=== PATIENT | female | born 1995 | race American Indian/Alaskan Native ===

== ENCOUNTER 2017-01-28 03:34 | Emergency (ER) | payer MEDICAID ==
[2017-01-28 03:50] VITALS: BP 111/61
--- NOTE | 2017-01-28 04:21 | Emergency Department Report ---
HPI - General Chief Complaint: Allergic Reaction Time Seen by Provider: 01/28/17 04:06 - HPI HPI: Patient is a 21-year-old female with no past medical condition presents to ED complaining of having hives over her body since 6 PM yesterday. Patient states hives started on her inner thighs and in progress to back thighs buttock and lower back. Patient describes itching all over. Patient states she does not recall, to contact with anything or ingested anything different. ED Past Medical Hx - Past Medical History Previous Medical History?: Yes Additional medical history: Hx jaw dislocation 2013 - Surgical History Past Surgical History?: No - Social History Smoking Status: Never Smoker Substance Use Type: None - Medications Home Medications: Home Medications Medication Instructions Recorded Confirmed Last Taken Type Ondansetron [Zofran Odt] 4 mg PO Q4-6H PRN #20 tab.rapdis 06/12/14 Unknown Rx Calamine/Zinc 8-8% [Calamine] 1 applic TP DAILY #1 bottle 01/28/17 Unknown Rx Hydroxyzine HCl [hydrOXYzine] 50 mg PO QHS #20 tablet 01/28/17 Unknown Rx Ibuprofen [Motrin 600 MG tab] 600 mg PO Q8H PRN #15 tablet 01/28/17 Unknown Rx predniSONE [Deltasone] 10 mg PO QDAY #5 tab 01/28/17 Unknown Rx ED Review of Systems ROS: Stated complaint: ALLERGIC REACTION Other details as noted in HPI Constitutional: denies: chills, fever Eyes: denies: eye pain, eye discharge, vision change ENT: denies: ear pain, throat pain Respiratory: denies: cough, shortness of breath, wheezing Cardiovascular: denies: chest pain, palpitations Endocrine: no symptoms reported Gastrointestinal: denies: abdominal pain, nausea, diarrhea Genitourinary: denies: urgency, dysuria, discharge Musculoskeletal: denies: back pain, joint swelling, arthralgia, myalgia Skin: pruritus. denies: rash, lesions Neurological: denies: headache, weakness, numbness, paresthesias, confusion Psychiatric: denies: anxiety, depression Hematological/Lymphatic: denies: easy bleeding, easy bruising Physical Exam - Physical Exam Vital Signs: Vital Signs 01/28/17 03:41 Temperature 98 F Pulse Rate 95 H Respiratory 18 Rate Blood Pressure 111/61 Blood Pressure 111/61 [Right] O2 Sat by Pulse 10 L Oximetry Physical Exam: GENERAL: Alert and oriented x3, actively scratching whelps, Normal Gait, atraumatic. HEAD: Head is normocephalic and a-traumatic. EYES: Extra ocular muscles are intact. Pupils are equal, round, and reactive to light and accommodation. MOUTH:Mouth is well hydrated and without lesions. Tonsils nonerythematous or swollen, Uvula midline, Tongue not elevated. Mucous membranes are moist. Posterior pharynx clear, no exudate or lesions. Patent airways. LUNGS: Symetrical with respiration, No wheezing, no rales or crackles, CTAB. HEART: S1, S2 present, regular rate and rhythm without murmur, no rubs, no gallops. Non tender to palpation ABDOMEN: No organomegaly was noted,Positive bowel sounds, soft, and non- distended. . Nontender to palpation on all Quadrants, NO CVA tenderness. SKIN: Warm and dry, generalized, raised, erythematous, whelps seen on bilateral thighs and buttocks and back area No lesions, No ulceration or induration present. ED Course Vital Signs 01/28/17 03:41 Temperature 98 F Pulse Rate 95 H Respiratory 18 Rate Blood Pressure 111/61 Blood Pressure 111/61 [Right] O2 Sat by Pulse 10 L Oximetry ED Medical Decision Making - Medical Decision Making 18-year-old female presents with the allergic reaction ED course: Patient received some Pepcid and Benadryl in the ED Patient will be sent home on trial of Benadryl, but is of prednisone and, calam lotion Discussed the patient to follow instructions as given Discussed symptoms will resolve on its own vital signs are stable patient is in no acute distress. She had an on uneventful ED stay Critical care attestation.: If time is entered above; I have spent that time in minutes in the direct care of this critically ill patient, excluding procedure time. ED Disposition Clinical Impression: Acute urticaria Allergic reaction Qualifiers: Encounter type: initial encounter Qualified Code(s): T78.40XA - Allergy, unspecified, initial encounter Disposition: TO HOME OR SELFCARE Is pt being admited?: No Does the pt Need Aspirin: No Condition: Stable Instructions: Urticaria (ED), Anaphylaxis (ED), Allergies (ED) Prescriptions: Hydroxyzine HCl [hydrOXYzine] 50 mg PO QHS #20 tablet Calamine/Zinc 8-8% [Calamine] 1 applic TP DAILY #1 bottle Ibuprofen [Motrin 600 MG tab] 600 mg PO Q8H PRN #15 tablet PRN Reason: Pain predniSONE [Deltasone] 10 mg PO QDAY #5 tab Referrals: [facility] [Outside] - 3-5 Days [facility] [Outside] - 3-5 Days [facility] [Outside] - 3-5 Days Forms: Accompanied Note, Work/School Release Form(ED) Time of Disposition: 05:10
[2017-01-28] MEDS ORDERED: PEPCID PO ONE (04:33)
[2017-01-28] MEDS ORDERED: BENADRYL PO ONE (04:33)
== END 2017-01-28 05:53 | disposition home or self-care (01) ==
LOC: ED 03:34
DX: L50.9 Urticaria, unspecified (principal); T78.40XA Allergy, unspecified, initial encounter
CPT/HCPCS: 96372; 99282; J2930

== ENCOUNTER 2017-07-31 02:59 | Emergency (ER) | payer MEDICAID ==
[2017-07-31 03:35] VITALS: BP 129/77
[2017-07-31] MEDS ORDERED: NORCO 5/325 PO ONE (07:08)
[2017-07-31] MEDS ORDERED: NORCO 5/325 ONE (07:10)
[2017-07-31] MEDS ORDERED: BSS 1 DROPS, TETRACAINE 0.5% 1 DROPS, FUL-GLO 1 MG OD ONE (07:22)
[2017-07-31] MEDS ORDERED: TETRACAINE 0.5% ONE (07:26)
[2017-07-31] MEDS ORDERED: TETRACAINE 0.5% OU ONE (07:34)
--- NOTE | 2017-07-31 07:36 | Emergency Department Report ---
ED Eye Problem HPI - General Chief complaint: Eye Problems Stated complaint: BILATERAL EYE PAIN Source: patient Mode of arrival: Ambulatory Limitations: No Limitations - History of Present Illness Initial comments: 21-year-old -[place] female comes in stating she felt seeing with her contacts last night and when she woke up she had redness and burning and itching and throbbing pain left eye reports light sensitivity. She does have someone here to drive her. chief complaint: eye pain, eye redness -: Last night Onset Description: awoke with symptoms Location: left eye If Injury: none Eye Symptoms: burning, redness, pain, discharge (watery), photophobia Severity scale (0 -10): 10 If Pain, Quality: burning, throbbing, stabbing Consistency: constant Context: contact lens use Treatments Prior to Arrival: none - Related Data Previous Rx's Medication Instructions Recorded Last Taken Type Ondansetron [Zofran Odt] 4 mg PO Q4-6H PRN #20 tab.rapdis 06/12/14 Unknown Rx Calamine/Zinc 8-8% [Calamine] 1 applic TP DAILY #1 bottle 01/28/17 Unknown Rx Hydroxyzine HCl [hydrOXYzine] 50 mg PO QHS #20 tablet 01/28/17 Unknown Rx Ibuprofen [Motrin 600 MG tab] 600 mg PO Q8H PRN #15 tablet 01/28/17 Unknown Rx predniSONE [Deltasone] 10 mg PO QDAY #5 tab 01/28/17 Unknown Rx Acetaminophen/Codeine [Tylenol 1 tab PO Q4HR PRN #12 tablet 07/31/17 Unknown Rx /Codeine # 3 tab] Levofloxacin [levofloxacin OPTH] 1 - 2 drop OP Q2HWA 5 Days #1 07/31/17 Unknown Rx bottle Allergies Allergy/AdvReac Type Severity Reaction Status Date / Time No Known Allergies Allergy Verified 06/11/14 23:54 ED Review of Systems ROS: Stated complaint: BILATERAL EYE PAIN Other details as noted in HPI Constitutional: denies: chills, fever Eyes: eye pain, eye discharge, vision change ENT: denies: ear pain, throat pain Respiratory: denies: cough, shortness of breath, wheezing Cardiovascular: denies: chest pain, palpitations Endocrine: no symptoms reported Gastrointestinal: denies: abdominal pain, nausea, diarrhea Genitourinary: denies: urgency, dysuria, discharge Musculoskeletal: denies: back pain, joint swelling, arthralgia Skin: denies: rash, lesions Neurological: denies: headache, weakness, paresthesias Psychiatric: denies: anxiety, depression Hematological/Lymphatic: denies: easy bleeding, easy bruising ED Past Medical Hx - Past Medical History Previous Medical History?: Yes Additional medical history: Hx jaw dislocation 2013 - Social History Smoking Status: Never Smoker - Medications Home Medications: Home Medications Medication Instructions Recorded Confirmed Last Taken Type Ondansetron [Zofran Odt] 4 mg PO Q4-6H PRN #20 tab.rapdis 06/12/14 Unknown Rx Calamine/Zinc 8-8% [Calamine] 1 applic TP DAILY #1 bottle 01/28/17 Unknown Rx Hydroxyzine HCl [hydrOXYzine] 50 mg PO QHS #20 tablet 01/28/17 Unknown Rx Ibuprofen [Motrin 600 MG tab] 600 mg PO Q8H PRN #15 tablet 01/28/17 Unknown Rx predniSONE [Deltasone] 10 mg PO QDAY #5 tab 01/28/17 Unknown Rx Acetaminophen/Codeine [Tylenol 1 tab PO Q4HR PRN #12 tablet 07/31/17 Unknown Rx /Codeine # 3 tab] Levofloxacin [levofloxacin OPTH] 1 - 2 drop OP Q2HWA 5 Days #1 07/31/17 Unknown Rx bottle ED Physical Exam - General Limitations: No Limitations General appearance: alert, in no apparent distress - Head Head exam: Present: atraumatic, normocephalic - Expanded Eye Exam Expanded Eyelids: Normal Inspection: Left Pupils: Regular, Round: Left Sclera/Conjunctival: Injection: Left Anterior chamber: Cell/Flare: Left (pleurisy uptake in the cornea lower pole of the eye between 7 and 5:00) Visual acuity (R) = 20/: 40 Visual acuity (L) = 20/: 50 With correction: No - Neurological Exam Neurological exam: Present: alert, oriented X3 - Psychiatric Psychiatric exam: Present: normal affect, normal mood ED Course Vital Signs 07/31/17 07/31/17 07/31/17 03:01 03:45 08:00 Temperature 98.3 F 98.3 F Pulse Rate 83 70 68 Respiratory 18 18 16 Rate Blood Pressure 129/77 129/77 O2 Sat by Pulse 100 100 99 Oximetry ED Medical Decision Making - Medical Decision Making Patient reevaluated by this provider fast track. Patient has a corneal abrasion discussed the patient and place her on antibiotics and have her follow up with an vamp strap ironer within the next 24-48 hours. Patient verbalized understanding. Critical care attestation.: If time is entered above; I have spent that time in minutes in the direct care of this critically ill patient, excluding procedure time. ED Disposition Clinical Impression: Corneal abrasion, left Qualifiers: Encounter type: initial encounter Qualified Code(s): S05.02XA - Injury of conjunctiva and corneal abrasion without foreign body, left eye, initial encounter Disposition: - TO HOME OR SELFCARE Is pt being admited?: No Does the pt Need Aspirin: No Condition: Stable Instructions: Corneal Abrasion (ED) Additional Instructions: Please see the drops as prescribed it is very important free to follow-up with an vamp strap ironer within 24-48 hours. I have listed several below. Prescriptions: Levofloxacin [levofloxacin OPTH] 1 - 2 drop OP Q2HWA 5 Days #1 bottle Acetaminophen/Codeine [Tylenol /Codeine # 3 tab] 1 tab PO Q4HR PRN #12 tablet PRN Reason: Pain Referrals: SHASTA JJ MD [Primary Care Provider] - 3-5 Days LUNA GERMAN MD [Staff Physician] - 3-5 Days GABINO CARDENAS MD [Staff Physician] - 3-5 Days JULIANO LEWIS MD [Staff Physician] - 3-5 Days KATIE DELUNA MD [Staff Physician] - 3-5 Days Forms: Work/School Release Form(ED)
[2017-07-31] MEDS ORDERED: FUL-GLO OP ONE ×2 (08:00→08:30)
== END 2017-07-31 07:59 | disposition home or self-care (01) ==
LOC: ED 02:59
DX: S05.02XA Injury of conjunctiva and corneal abrasion without foreign body, left eye, initial encounter (principal); X58.XXXA Exposure to other specified factors, initial encounter; Y93.89 Activity, other specified; Y92.89 Other specified places as the place of occurrence of the external cause; Y99.8 Other external cause status
CPT/HCPCS: 99283

== ENCOUNTER 2017-09-11 21:28 | Emergency (ER) | payer MEDICAID ==
[2017-09-11 22:55] VITALS: BP 130/85
== END 2017-09-11 23:43 | disposition left against medical advice (07) ==
LOC: ED 21:28
DX: K08.89 Other specified disorders of teeth and supporting structures (principal); Z53.21 Procedure and treatment not carried out due to patient leaving prior to being seen by health care provider

== ENCOUNTER 2017-11-16 10:57 | Emergency (ER) | payer MEDICAID ==
[2017-11-16 11:05] VITALS: BP 133/76
[2017-11-16 12:25] LABS: Bilirubin,Urine NEG (Negative); Blood,Urine NEG (Negative); Color,Urine Yellow (Yellow); Protein,Urine <15 mg/dL mg/dL (Negative); Urobilinogen,Urine < 2.0 mg/dL (<2.0)
[2017-11-16 12:28] LABS: HCG Qualitative,Urine Negative (Negative)
[2017-11-16] MEDS ORDERED: TORADOL IM ONE (12:43)
--- NOTE | 2017-11-16 12:44 | Emergency Department Report ---
ED Female HPI - General Chief complaint: Abdominal Pain Stated complaint: ABDOMINAL PAIN Time Seen by Provider: 11/16/17 12:26 Source: patient Mode of arrival: Ambulatory Limitations: No Limitations - History of Present Illness Initial comments: 22-year-old female past medical history ovarian cysts presents with complaint of right-sided lower abdominal pain consistent with previous episode of ovarian pain/adnexal pain. Patient does state she had whitish vaginal discharge. Patient was evaluated for similar episode at [facility] at the end of August 2017. States she had a battery of testing including blood work vaginal swabs and ultrasound. Patient presents to the result of an ultrasound which shows a 4.7 cm complicated right-sided ovarian cystic structure. Patient denies any vomiting fever or chills or dysuria but does state that she is having persistent right-sided adnexal pain. Pointing to her right lower abdominal region. States she is currently sexually active. LMP 10/28/17 MD Complaint: dysuria, pelvic pain Severity: moderate Severity scale (0 -10): 6 Consistency: intermittent Improves with: none Worsens with: none Are you Now?: No Last Menstrual Period: 10/28/17 EDC: 08/04/18 - Related Data Previous Rx's Medication Instructions Recorded Last Taken Type Ondansetron [Zofran Odt] 4 mg PO Q4-6H PRN #20 tab.rapdis 06/12/14 Unknown Rx Calamine/Zinc 8-8% [Calamine] 1 applic TP DAILY #1 bottle 01/28/17 Unknown Rx Hydroxyzine HCl [hydrOXYzine] 50 mg PO QHS #20 tablet 01/28/17 Unknown Rx Ibuprofen [Motrin 600 MG tab] 600 mg PO Q8H PRN #15 tablet 01/28/17 Unknown Rx predniSONE [Deltasone] 10 mg PO QDAY #5 tab 01/28/17 Unknown Rx Acetaminophen/Codeine [Tylenol 1 tab PO Q4HR PRN #12 tablet 07/31/17 Unknown Rx /Codeine # 3 tab] Levofloxacin [levofloxacin OPTH] 1 - 2 drop OP Q2HWA 5 Days #1 07/31/17 Unknown Rx bottle Acetaminophen/Codeine [Tylenol 1 tab PO Q6H PRN #10 tab 11/16/17 Unknown Rx /Codeine # 3 tab] Ibuprofen [Motrin] 800 mg PO Q8HR PRN #30 tablet 11/16/17 Unknown Rx metroNIDAZOLE [Flagyl TAB] 500 mg PO Q12HR #14 tab 11/16/17 Unknown Rx Allergies Allergy/AdvReac Type Severity Reaction Status Date / Time No Known Allergies Allergy Verified 11/16/17 11:00 ED Review of Systems ROS: Stated complaint: ABDOMINAL PAIN Other details as noted in HPI Constitutional: denies: chills, fever Eyes: denies: eye pain, eye discharge, vision change ENT: denies: ear pain, throat pain Respiratory: denies: cough, shortness of breath, wheezing Cardiovascular: denies: chest pain, palpitations Endocrine: no symptoms reported Gastrointestinal: denies: abdominal pain, nausea, diarrhea Genitourinary: as per HPI, discharge. denies: urgency, dysuria Musculoskeletal: denies: back pain, joint swelling, arthralgia Skin: denies: rash, lesions Neurological: denies: headache, weakness, paresthesias Psychiatric: denies: anxiety, depression Hematological/Lymphatic: denies: easy bleeding, easy bruising ED Past Medical Hx - Past Medical History Additional medical history: Hx jaw dislocation 2014/ OVARIAN CYST - Social History Smoking Status: Never Smoker Substance Use Type: None - Medications Home Medications: Home Medications Medication Instructions Recorded Confirmed Last Taken Type Ondansetron [Zofran Odt] 4 mg PO Q4-6H PRN #20 tab.rapdis 06/12/14 Unknown Rx Calamine/Zinc 8-8% [Calamine] 1 applic TP DAILY #1 bottle 01/28/17 Unknown Rx Hydroxyzine HCl [hydrOXYzine] 50 mg PO QHS #20 tablet 01/28/17 Unknown Rx Ibuprofen [Motrin 600 MG tab] 600 mg PO Q8H PRN #15 tablet 01/28/17 Unknown Rx predniSONE [Deltasone] 10 mg PO QDAY #5 tab 01/28/17 Unknown Rx Acetaminophen/Codeine [Tylenol 1 tab PO Q4HR PRN #12 tablet 07/31/17 Unknown Rx /Codeine # 3 tab] Levofloxacin [levofloxacin OPTH] 1 - 2 drop OP Q2HWA 5 Days #1 07/31/17 Unknown Rx bottle Acetaminophen/Codeine [Tylenol 1 tab PO Q6H PRN #10 tab 11/16/17 Unknown Rx /Codeine # 3 tab] Ibuprofen [Motrin] 800 mg PO Q8HR PRN #30 tablet 11/16/17 Unknown Rx metroNIDAZOLE [Flagyl TAB] 500 mg PO Q12HR #14 tab 11/16/17 Unknown Rx ED Physical Exam - General Limitations: No Limitations General appearance: alert, in no apparent distress - Head Head exam: Present: atraumatic, normocephalic - Eye Eye exam: Present: normal appearance, PERRL, EOMI - ENT ENT exam: Present: mucous membranes moist - Neck Neck exam: Present: normal inspection - Respiratory Respiratory exam: Present: normal lung sounds bilaterally. Absent: respiratory distress - Cardiovascular Cardiovascular Exam: Present: regular rate, normal rhythm. Absent: systolic murmur, diastolic murmur, rubs, gallop - GI/Abdominal GI/Abdominal exam: Present: soft, normal bowel sounds - External exam: Present: normal external exam Speculum exam: Present: vaginal discharge Bi-manual exam: Present: normal bi-manual exam (no significant adnexal pain on bimanual exam) - Extremities Exam Extremities exam: Present: normal inspection - Back Exam Back exam: Present: normal inspection - Neurological Exam Neurological exam: Present: alert, oriented X3 - Psychiatric Psychiatric exam: Present: normal affect, normal mood - Skin Skin exam: Present: warm, dry, intact, normal color. Absent: rash ED Course Vital Signs 11/16/17 11/16/17 11:01 13:57 Temperature 98.1 F Pulse Rate 86 Respiratory 18 18 Rate Blood Pressure 133/76 O2 Sat by Pulse 99 Oximetry ED Medical Decision Making - Medical Decision Making A/P: Ovarian cyst, vaginal discharge 1- I discussed ultrasound with Dr. Schroeder as PACS system is down today. Ultrasound shows 2.9 cm right-sided ovarian cyst. The blood flow to both ovaries on Doppler 2- Motrin when necessary, Tylenol No. 3 when necessary 3- course of metronidazole for BV 4- follow-up with [facility] Critical care attestation.: If time is entered above; I have spent that time in minutes in the direct care of this critically ill patient, excluding procedure time. ED Disposition Clinical Impression: Right ovarian cyst Disposition: DC- TO HOME OR SELFCARE Is pt being admited?: No Does the pt Need Aspirin: No Condition: Stable Instructions: Ovarian Cyst (ED) Prescriptions: Acetaminophen/Codeine [Tylenol /Codeine # 3 tab] 1 tab PO Q6H PRN #10 tab PRN Reason: Pain Ibuprofen [Motrin] 800 mg PO Q8HR PRN #30 tablet PRN Reason: Pain metroNIDAZOLE [Flagyl TAB] 500 mg PO Q12HR #14 tab Referrals: [facility] [Provider Group] - 3-5 Days [facility] [Provider Group] - 3-5 Days Forms: Work/School Release Form(ED) Time of Disposition: 14:45
[2017-11-16] MEDS ORDERED: TORADOL ONE ×2 (13:48)
--- NOTE | 2017-11-16 17:37 | Ultrasound Report ---
FINAL REPORT EXAM: US PELVIS DUPLEX DOPPLER COMP HISTORY: right adnexal pain and right lower quadrant pain. LMP 10/28/2017 TECHNIQUE: Ultrasound of the pelvis using transvaginal imaging PRIORS: None. FINDINGS: Uterus: Uterus is elongated in size, retroverted in position, and normal and homogeneous in echogenicity without focal fibroid formation. The uterus measures 8.2 x 4.3 x 5.5 cm in size. Endometrial stripe: Normal and uniform in thickness measuring 5.0 mm. Ovaries: Both ovaries appear enlarged in size and normal in echogenicity with normal blood flow bilaterally. The right ovary measures 5.0 x 2.3 x 3.1 cm and the left ovary measures 4.2 x 1.3 x 3.3 cm in size. On the right, there is a 1.9 cm cystic focus containing several internal thin septations. Findings are likely benign, however, short-term follow-up ultrasound is recommended in 6 weeks. Other: There is no evidence for solid adnexal mass but there is a small amount free fluid in the cul-de-sac seen. IMPRESSION: 1. complex cystic focus in the right ovary with internal septations. Findings are most likely benign, however, short-term follow-up ultrasound is recommended in 6 weeks. 2. small amount of free fluid is seen. 3. Uterus is retroverted and mildly elongated.
== END 2017-11-16 15:01 | disposition home or self-care (01) ==
LOC: ED 10:57
DX: N83.201 Unspecified ovarian cyst, right side (principal)
CPT/HCPCS: 76830; 81001; 81025; 87210; 87591; 93975; 96372; 99284; J1885

== ENCOUNTER 2018-02-04 11:13 | Emergency (ER) | payer MEDICAID, OTHER ==
--- NOTE | 2018-02-04 11:56 | Emergency Department Report ---
ED Female HPI - General Chief complaint: Vaginal Bleeding Stated complaint: /BLOOD SPOTTING Time Seen by Provider: 02/04/18 11:40 Source: patient Mode of arrival: Ambulatory Limitations: No Limitations - History of Present Illness Initial comments: Patient is 22 years old female 3 para 1 with one . Patient being that she is 4 weeks coming to the ER complaining of vaginal bleeding and cramping since yesterday. Patient denied any dizziness or lightheadedness. No chest pain or shortness of breath. MD Complaint: vaginal bleeding, pelvic pain -: Last night Radiation: suprapubic Severity: moderate Quality: cramping Consistency: intermittent - Related Data Previous Rx's Medication Instructions Recorded Last Taken Type Ondansetron [Zofran Odt] 4 mg PO Q4-6H PRN #20 tab.rapdis 06/12/14 Unknown Rx Calamine/Zinc 8-8% [Calamine] 1 applic TP DAILY #1 bottle 01/28/17 Unknown Rx Hydroxyzine HCl [hydrOXYzine] 50 mg PO QHS #20 tablet 01/28/17 Unknown Rx Ibuprofen [Motrin 600 MG tab] 600 mg PO Q8H PRN #15 tablet 01/28/17 Unknown Rx predniSONE [Deltasone] 10 mg PO QDAY #5 tab 01/28/17 Unknown Rx Acetaminophen/Codeine [Tylenol 1 tab PO Q4HR PRN #12 tablet 07/31/17 Unknown Rx /Codeine # 3 tab] Levofloxacin [levofloxacin OPTH] 1 - 2 drop OP Q2HWA 5 Days #1 07/31/17 Unknown Rx bottle Acetaminophen/Codeine [Tylenol 1 tab PO Q6H PRN #10 tab 11/16/17 Unknown Rx /Codeine # 3 tab] Ibuprofen [Motrin] 800 mg PO Q8HR PRN #30 tablet 11/16/17 Unknown Rx metroNIDAZOLE [Flagyl TAB] 500 mg PO Q12HR #14 tab 11/16/17 Unknown Rx Allergies Allergy/AdvReac Type Severity Reaction Status Date / Time No Known Allergies Allergy Verified 11/16/17 16:45 ED Review of Systems ROS: Stated complaint: /BLOOD SPOTTING Other details as noted in HPI Comment: All other systems reviewed and negative Constitutional: denies: chills, fever Cardiovascular: denies: chest pain, palpitations, dyspnea on exertion Gastrointestinal: abdominal pain Neurological: denies: headache, weakness, numbness, paresthesias ED Past Medical Hx - Past Medical History Additional medical history: Hx jaw dislocation 2014/ OVARIAN CYST - Social History Smoking Status: Never Smoker Substance Use Type: None - Medications Home Medications: Home Medications Medication Instructions Recorded Confirmed Last Taken Type Ondansetron [Zofran Odt] 4 mg PO Q4-6H PRN #20 tab.rapdis 06/12/14 Unknown Rx Calamine/Zinc 8-8% [Calamine] 1 applic TP DAILY #1 bottle 01/28/17 Unknown Rx Hydroxyzine HCl [hydrOXYzine] 50 mg PO QHS #20 tablet 01/28/17 Unknown Rx Ibuprofen [Motrin 600 MG tab] 600 mg PO Q8H PRN #15 tablet 01/28/17 Unknown Rx predniSONE [Deltasone] 10 mg PO QDAY #5 tab 01/28/17 Unknown Rx Acetaminophen/Codeine [Tylenol 1 tab PO Q4HR PRN #12 tablet 07/31/17 Unknown Rx /Codeine # 3 tab] Levofloxacin [levofloxacin OPTH] 1 - 2 drop OP Q2HWA 5 Days #1 07/31/17 Unknown Rx bottle Acetaminophen/Codeine [Tylenol 1 tab PO Q6H PRN #10 tab 11/16/17 Unknown Rx /Codeine # 3 tab] Ibuprofen [Motrin] 800 mg PO Q8HR PRN #30 tablet 11/16/17 Unknown Rx metroNIDAZOLE [Flagyl TAB] 500 mg PO Q12HR #14 tab 11/16/17 Unknown Rx ED Physical Exam - General Limitations: No Limitations General appearance: alert, in no apparent distress - Head Head exam: Present: atraumatic, normocephalic, normal inspection - Eye Eye exam: Present: normal appearance, PERRL - ENT ENT exam: Present: normal exam, normal orophraynx, mucous membranes moist - Neck Neck exam: Present: normal inspection, full ROM. Absent: tenderness, meningismus, lymphadenopathy, thyromegaly - Respiratory Respiratory exam: Present: normal lung sounds bilaterally - Cardiovascular Cardiovascular Exam: Present: regular rate, normal rhythm, normal heart sounds - GI/Abdominal GI/Abdominal exam: Present: soft, normal bowel sounds. Absent: distended, tenderness, guarding, rebound, rigid, organomegaly, mass, bruit, pulsatile mass , hernia - Extremities Exam Extremities exam: Present: normal inspection, full ROM, normal capillary refill - Back Exam Back exam: Present: normal inspection, full ROM. Absent: CVA tenderness (L) - Neurological Exam Neurological exam: Present: alert, oriented X3, CN II-XII intact, normal gait - Skin Skin exam: Present: warm, intact, normal color ED Course Vital Signs 02/04/18 11:15 Temperature 98.5 F Pulse Rate 89 Respiratory 16 Rate Blood Pressure 130/68 O2 Sat by Pulse 100 Oximetry ED Medical Decision Making - Lab Data Result diagrams: 02/04/18 12:10 02/04/18 12:10 - Medical Decision Making Patient is 22 years old female presented to the ER with vaginal spotting for the last 2-3 days. Patient claimed that she is 4 weeks . However. HCG today is 800. I advised patient to follow up with her OB in 2 days for repeat O4 labs or she can return to the ER for that. Critical care attestation.: If time is entered above; I have spent that time in minutes in the direct care of this critically ill patient, excluding procedure time. ED Disposition Clinical Impression: Vaginal bleeding affecting early Disposition: DC-01 TO HOME OR SELFCARE Is pt being admited?: No Condition: Stable Instructions: Abdominal Pain in (ED) Referrals: PRIMARY CARE, [Primary Care Provider] - 3-5 Days
[2018-02-04 12:44] LABS: Basophils % (Auto) 0.9 % (0.0-1.8); Hematocrit 36.6 % (30.3-42.9); Hemoglobin 12.2 gm/dl (10.1-14.3); Lymphocytes # (Auto) 1.2 K/mm3 (1.2-5.4); Lymphocytes % (Auto) 38.3 % (13.4-35.0); Mean Corpuscular HGB Conc 33 % (30-34); Mean Corpuscular Hemoglobin 28 pg (28-32); Mean Corpuscular Volume 86 fl (79-97); Monocytes # (Auto) 0.3 K/mm3 (0.0-0.8); Monocytes % (Auto) 8.4 % (0.0-7.3); Platelet Count 296 K/mm3 (140-440); Red Blood Count 4.28 M/mm3 (3.65-5.03); Red Cell Distribution Width 13.8 % (13.2-15.2)
[2018-02-04 12:52] LABS: BUN/Creatinine Ratio 14; Blood Urea Nitrogen 7 mg/dL (7-17); Calcium 8.8 mg/dL (8.4-10.2); Hemolysis Index 13
[2018-02-04 13:05] LABS: INR 1.01 (0.87-1.13); Partial Thromboplastin Time 26.7 Sec. (24.2-36.6)
[2018-02-04 14:37] VITALS: BP 108/57
[2018-02-04 15:11] LABS: Bacteria,Urine 1+ /HPF (Negative); Bilirubin,Urine NEG (Negative); Blood,Urine LG (Negative); Color,Urine Yellow (Yellow); Mucus,Urine FEW /HPF; Protein,Urine <15 mg/dL mg/dL (Negative); Urobilinogen,Urine < 2.0 mg/dL (<2.0)
[2018-02-04 15:13] LABS: RBC,Urine > 182.0 /HPF (0.0-6.0)
== END 2018-02-04 14:36 | disposition home or self-care (01) ==
LOC: ED 11:13
DX: O20.9 Hemorrhage in early pregnancy, unspecified (principal); O26.891 Other specified pregnancy related conditions, first trimester; R10.9 Unspecified abdominal pain; Z3A.01 Less than 8 weeks gestation of pregnancy
CPT/HCPCS: 36415; 80048; 81001; 84702; 85025; 85610; 85730; 86900; 86901; 99283

== ENCOUNTER 2018-02-06 08:09 | Emergency (ER) | payer SELFPAY ==
[2018-02-06 09:08] LABS: Basophils # (Auto) 0.1 K/mm3 (0.0-0.1); Basophils % (Auto) 1.9 % (0.0-1.8); Hematocrit 32.9 % (30.3-42.9); Hemoglobin 11.6 gm/dl (10.1-14.3); Lymphocytes # (Auto) 1.5 K/mm3 (1.2-5.4); Mean Corpuscular HGB Conc 35 % (30-34); Mean Corpuscular Hemoglobin 30 pg (28-32); Mean Corpuscular Volume 84 fl (79-97); Monocytes # (Auto) 0.3 K/mm3 (0.0-0.8); Monocytes % (Auto) 6.8 % (0.0-7.3); Platelet Count 290 K/mm3 (140-440); Red Cell Distribution Width 13.5 % (13.2-15.2)
--- NOTE | 2018-02-06 10:50 | Emergency Department Report ---
ED HPI - General Chief complaint: Vaginal Bleeding Stated complaint: BLEEDING AND PREG Time Seen by Provider: 02/06/18 10:37 Source: patient Mode of arrival: Ambulatory Limitations: No Limitations - History of Present Illness Initial comments: This is a 22-year-old -[place] female who presents with vaginal bleeding and cramping for 2 days. Patient states she was seen here on Monday and instructed to return in 2 days to rule out miscarriage. Patient states she is still passing large amounts of clots and having to change her menstrual pad every 2-4 hours. Patient states she is also having some lower abdominal pain. Patient reports last menstrual period 12/26/2017, A1. Patient denies low back pain, nausea or vomiting, fever, and chest pain. MD Complaint: abdominal pain, vaginal bleeding Onset/Timin -: days(s) Location: abdomen Radiation: none Severity: moderate Severity scale (0 -10): 5 Quality: cramping Consistency: intermittent Improves with: none Worsens with: none Associated symptoms: vaginal bleeding, abdominal pain. denies: nausea/vomiting , vaginal discharge, dysuria, headache, vision changes, malaise, dysparuenia, rash, seizure, shortness of breath, syncope, weakness Vaginal bleeding: clots :: Yes OB History - Current : no complications OB History - Previous Pregnancies: no complications Last menstrual period: 12/26/17 Pre-stacie care: none - Related Data : 3 Para: 1 Ab: 1 Previous Rx's Medication Instructions Recorded Last Taken Type Ondansetron [Zofran Odt] 4 mg PO Q4-6H PRN #20 tab.rapdis 06/12/14 Unknown Rx Calamine/Zinc 8-8% [Calamine] 1 applic TP DAILY #1 bottle 01/28/17 Unknown Rx Hydroxyzine HCl [hydrOXYzine] 50 mg PO QHS #20 tablet 01/28/17 Unknown Rx Ibuprofen [Motrin 600 MG tab] 600 mg PO Q8H PRN #15 tablet 01/28/17 Unknown Rx predniSONE [Deltasone] 10 mg PO QDAY #5 tab 01/28/17 Unknown Rx Acetaminophen/Codeine [Tylenol 1 tab PO Q4HR PRN #12 tablet 07/31/17 Unknown Rx /Codeine # 3 tab] Levofloxacin [levofloxacin OPTH] 1 - 2 drop OP Q2HWA 5 Days #1 02/05/18 Unknown Rx bottle Acetaminophen/Codeine [Tylenol 1 tab PO Q6H PRN #10 tab 11/16/17 Unknown Rx /Codeine # 3 tab] Ibuprofen [Motrin] 800 mg PO Q8HR PRN #30 tablet 11/16/17 Unknown Rx metroNIDAZOLE [Flagyl TAB] 500 mg PO Q12HR #14 tab 11/16/17 Unknown Rx Allergies Allergy/AdvReac Type Severity Reaction Status Date / Time No Known Allergies Allergy Verified 02/06/18 08:19 ED Review of Systems ROS: Stated complaint: BLEEDING AND PREG Other details as noted in HPI Constitutional: denies: chills, fever Respiratory: denies: cough, shortness of breath, wheezing Cardiovascular: denies: chest pain, palpitations Gastrointestinal: abdominal pain (lower abdominal cramping). denies: nausea, vomiting, diarrhea Genitourinary: other (vaginal bleeding). denies: urgency, dysuria, discharge Musculoskeletal: denies: back pain, joint swelling, arthralgia Neurological: denies: headache, weakness, paresthesias Psychiatric: denies: anxiety, depression ED Past Medical Hx - Past Medical History Additional medical history: Hx jaw dislocation 2013/ OVAR[facility] CYST - Surgical History Past Surgical History?: No - Social History Smoking Status: Never Smoker Substance Use Type: None - Medications Home Medications: Home Medications Medication Instructions Recorded Confirmed Last Taken Type Ondansetron [Zofran Odt] 4 mg PO Q4-6H PRN #20 tab.rapdis 06/12/14 Unknown Rx Calamine/Zinc 8-8% [Calamine] 1 applic TP DAILY #1 bottle 01/28/17 Unknown Rx Hydroxyzine HCl [hydrOXYzine] 50 mg PO QHS #20 tablet 01/28/17 Unknown Rx Ibuprofen [Motrin 600 MG tab] 600 mg PO Q8H PRN #15 tablet 01/28/17 Unknown Rx predniSONE [Deltasone] 10 mg PO QDAY #5 tab 01/28/17 Unknown Rx Acetaminophen/Codeine [Tylenol 1 tab PO Q4HR PRN #12 tablet 07/31/17 Unknown Rx /Codeine # 3 tab] Levofloxacin [levofloxacin OPTH] 1 - 2 drop OP Q2HWA 5 Days #1 07/31/17 Unknown Rx bottle Acetaminophen/Codeine [Tylenol 1 tab PO Q6H PRN #10 tab 05/24/18 Unknown Rx /Codeine # 3 tab] Ibuprofen [Motrin] 800 mg PO Q8HR PRN #30 tablet 11/16/17 Unknown Rx metroNIDAZOLE [Flagyl TAB] 500 mg PO Q12HR #14 tab 11/16/17 Unknown Rx ED Physical Exam - General Limitations: No Limitations General appearance: alert, in no apparent distress - Respiratory Respiratory exam: Present: normal lung sounds bilaterally. Absent: respiratory distress - Cardiovascular Cardiovascular Exam: Present: regular rate, normal rhythm. Absent: systolic murmur, diastolic murmur, rubs, gallop - GI/Abdominal GI/Abdominal exam: Present: soft, tenderness (suprapubic tenderness), normal bowel sounds. Absent: distended, guarding, rebound, rigid, organomegaly, mass - Back Exam Back exam: Present: normal inspection, full ROM. Absent: CVA tenderness (R), CVA tenderness (L) - Neurological Exam Neurological exam: Present: alert, oriented X3, normal gait - Psychiatric Psychiatric exam: Present: normal affect, normal mood - Skin Skin exam: Present: warm, dry, intact, normal color. Absent: rash ED Course Vital Signs 02/06/18 08:19 Temperature 98.5 F Pulse Rate 80 Respiratory 16 Rate Blood Pressure 119/60 O2 Sat by Pulse 98 Oximetry ED Medical Decision Making - Lab Data Result diagrams: 02/06/18 08:39 - Radiology Data Radiology results: report reviewed ULTRASOUND OB LESS THAN 14 WEEKS FETUS ULTRASOUND OB TRANSVAGINAL HISTORY: Vaginal bleeding during . COMPARISON: 11/16/17. TECHNIQUE: Transabdominal and transvaginal ultrasound with color doppler interrogation. FINDINGS: Uterus: The uterus is retroflexed and measures 8.5 x 4.0 x 5.9 cm. No uterine mass is identified. The cervix is obscured. Endometrium: The endometrium measures 7 mm in thickness. No intrauterine is demonstrated. Right ovary: 3.5 x 1.6 x 2.7 cm. No focal abnormality. Left ovary: 2.2 x 1.3 x 3.0 cm. No focal abnormality. No pelvic fluid or mass is identified. Normal color doppler interrogation. IMPRESSION: Unremarkable transabdominal and transvaginal pelvic ultrasounds. No intrauterine is demonstrated. - Medical Decision Making This is a 22 y.o. female presents with vaginal bleeding during for 2 days. Patient was examined by me. Vitals are normal and patient is in no acute distress. Obtained a urinalysis, CBC, hCG quant, and OB ultrasound. Quant 608.7 which is lower than 2 days ago. All other labs unremarkable. Unremarkable transabdominal and transvaginal pelvic ultrasounds. No intrauterine is demonstrated. Patient instructed to follow-up with with [facility] in a few days for further evaluation. Patient discharged home in stable condition. Critical care attestation.: If time is entered above; I have spent that time in minutes in the direct care of this critically ill patient, excluding procedure time. ED Disposition Clinical Impression: Threatened miscarriage, Vaginal bleeding during Disposition: TO HOME OR SELFCARE Is pt being admited?: No Does the pt Need Aspirin: No Condition: Stable Instructions: Threatened Miscarriage (ED) Additional Instructions: Follow up with [facility] in 24-48 hours. Return to ER if increased vaginal bleeding, abdominal pain, and low back pain. Referrals: [facility] [Provider Group] - 3-5 Days [facility] [Provider Group] - 3-5 Days [facility] [Outside] - 3-5 Days Time of Disposition: 12:30 Print Language: [place] LEONE[place]
--- NOTE | 2018-02-06 12:01 | Ultrasound Report ---
ULTRASOUND OB LESS THAN 14 WEEKS FETUS ULTRASOUND OB TRANSVAGINAL HISTORY: Vaginal bleeding during . COMPARISON: 11/16/17. TECHNIQUE: Transabdominal and transvaginal ultrasound with color doppler interrogation. FINDINGS: Uterus: The uterus is retroflexed and measures 8.5 x 4.0 x 5.9 cm. No uterine mass is identified. The cervix is obscured. Endometrium: The endometrium measures 7 mm in thickness. No intrauterine is demonstrated. Right ovary: 3.5 x 1.6 x 2.7 cm. No focal abnormality. Left ovary: 2.2 x 1.3 x 3.0 cm. No focal abnormality. No pelvic fluid or mass is identified. Normal color doppler interrogation. IMPRESSION: Unremarkable transabdominal and transvaginal pelvic ultrasounds. No intrauterine is demonstrated.
[2018-02-06 13:02] VITALS: BP 121/78
== END 2018-02-06 12:45 | disposition home or self-care (01) ==
LOC: ED 08:09
DX: O20.0 Threatened abortion (principal); Z3A.00 Weeks of gestation of pregnancy not specified
CPT/HCPCS: 36415; 76801; 76817; 84702; 85025; 86850; 86900; 86901

== ENCOUNTER 2019-06-04 17:56 | Emergency (ER) | payer MEDICAID ==
[2019-06-04 18:04] VITALS: BP 111/75
--- NOTE | 2019-06-04 18:11 | Emergency Department Report ---
Chief Complaint: Urogenital-Female Stated Complaint: VAGINAL IRRITATION/DISCHARGE Time Seen by Provider: 06/04/19 18:05 - HPI History of Present Illness: Pt presents with vaginal d/c x 2 days with no pelvic pain. Patient states that vaginal discharge as a mild odor. States last menstrual period was normal She denies dysuria, abd pain, n,v.f or any other symptoms - ROS Review of Systems: As noted in HPI - Exam Vital Signs: Vital Signs 06/04/19 18:03 Temperature 98.0 F Pulse Rate 89 Respiratory 16 Rate Blood Pressure 111/75 [Right] O2 Sat by Pulse 98 Oximetry Physical Exam: General: Alert and oriented 3. Excellent abdomen: Nontender MSE screening note: Focused history and physical exam performed. Due to findings the following was ordered: ED Medical Decision Making - Medical Decision Making 23-year-old female presents with vaginal discharge. I discussed with the patient that this is not a medical emergency. Patient was sent to [facility] to be evaluated. Medicines are normal patient is in no acute distress ED Disposition for MSE Clinical Impression: Vaginal discharge Disposition: DC-01 TO HOME OR SELFCARE Is pt being admited?: No Does the pt Need Aspirin: No Condition: Stable Additional Instructions: follow up with [facility] Referrals: PRIMARY CARE, [Primary Care Provider] - 3-5 Days Forms: Work/School Release Form(ED) Time of Disposition: 18:09
== END 2019-06-04 18:30 | disposition home or self-care (01) ==
LOC: ED 17:56
DX: N89.8 Other specified noninflammatory disorders of vagina (principal)
CPT/HCPCS: 99281